=== PATIENT | female | born 1965 ===

== ENCOUNTER 2019-09-03 06:10 | Day surgery (SDC) | payer OTHER ==
[~2019-09-03 06:10] MED LIST: ENALAPRIL-HCTZ1 EACH PO; LIPITOR20 MG PO; SINGULAIR10 MG PO; VITAMIN D-40010 MCG PO; ZYRTEC10 M3 PO
[2019-09-03] MEDS ORDERED: PERCOCET 5-3251 EACH PO (10:31)
== END 2019-09-03 13:27 | disposition home or self-care (01) ==
LOC: CIR.AMB 06:10 → ADM 08:00 → CIR.AMB 08:00
PROVIDERS: ATTEND Surgery
DX: D35.1 Benign neoplasm of parathyroid gland (principal)